=== PATIENT | male | born 1990 | race Caucasian/White ===

== ENCOUNTER 2018-01-18 23:23 | Emergency (ER) | payer OTHER ==
[~2018-01-18] VITALS: Ht 182.9 cm; Wt 83.9 kg
[~2018-01-18 23:23] MED LIST: AMOX875 PO; Amoxicillin500 MG PO; Bactrim Ds Tab1 EACH PO; CEPH500 PO; Cleocin HCl300 MG PO; IBUP600 PO; Norco 5-325 Ta1 EACH PO; Percocet 5-3251 EACH PO; Veetids 500500 MG PO
[2018-06-08] MEDS ORDERED: Zofran Odt4 MG PO (03:40)
[2018-09-26] MEDS ORDERED: SULI150 PO (03:31)
[2018-09-26] MEDS ORDERED: Robaxin-750750 MG PO (03:31)
== END 2018-01-19 00:21 | disposition home or self-care (01) ==
LOC: ER 23:23
DX: S60.552A Superficial foreign body of left hand, initial encounter (principal); F17.210 Nicotine dependence, cigarettes, uncomplicated; W22.8XXA Striking against or struck by other objects, initial encounter; Y99.0 Civilian activity done for income or pay
CPT/HCPCS: 90471; 90714; 99282

== ENCOUNTER 2019-04-11 19:28 | Emergency (ER) | payer OTHER ==
[~2019-04-11] VITALS: Ht 152.4 cm; Wt 94.3 kg
[~2019-04-11 19:28] MED LIST changes: +Robaxin-750750 MG PO; +SULI150 PO; +Zofran Odt4 MG PO
[2019-04-11 21:42] LABS: BASOPHILS ABSOLUTE AUTO 0.06 K/mm3 (0.00-0.23); BASOPHILS PERCENT AUTO 1 % (0-2); EOSINOPHILS ABSOLUTE AUTO 0.17 K/mm3 (0.00-0.68); EOSINOPHILS PERCENT AUTO 2 % (0-6); Hematocrit 48.6 % (37.0-53.0); Hemoglobin 16.3 g/dL (13.5-17.5); IMMATURE GRAN ABSOLUTE AUTO 0.02 K/mm3 (0.00-0.10); IMMATURE GRAN PERCENT AUTO 0 % (0-1); LYMPHOCYTES ABSOLUTE AUTO 4.29 K/mm3 (0.84-5.20); LYMPHOCYTES PERCENT AUTO 43 % (21-46); MONOCYTES ABSOLUTE AUTO 0.65 K/mm3 (0.16-1.47); MONOCYTES PERCENT AUTO 7 % (4-13); Mean Corpuscular HGB 31.2 pg (26.0-34.0); Mean Corpuscular HGB Conc 33.5 g/dL (31.5-36.5); Mean Corpuscular Volume 93 fL (80-100); Mean Platelet Volume 10.8 fL (9.1-12.4); NEUTROPHILS ABSOLUTE AUTO 4.82 K/mm3 (1.96-9.15); NEUTROPHILS PERCENT AUTO 48 % (41-73); Platelet Count 265 K/mm3 (150-400); RDW Coefficient Variation 12.3 % (11.7-14.2); RDW Standard Deviation 42.5 fL (35.1-46.3); Red Blood Cell Count 5.22 M/mm3 (4.30-5.90); White Blood Cell Count 10.01 K/mm3 (4.00-11.30)
[2019-04-11 21:59] LABS: Alanine Aminotransfer (ALT/SGP 64 U/L (12-78); Albumin/Globulin Ratio 1.2 (0.8-1.8); Alk Phos 73 U/L (50-136); Anion Gap 7 mmol/L (6-16); Aspartate Aminotrans (AST/SGOT 26 U/L (12-37); Bilirubin, Total 0.4 mg/dL (0.1-1.0); Blood Urea Nitrogen 11 mg/dL (8-24); Bun/Creatinine Ratio 14.1 (12.0-20.0); CO2, Blood 27 mmol/L (21-32); Chloride, Blood 106 mmol/L (98-108); Creatinine, Blood 0.78 mg/dL (0.60-1.20); Globulin, Blood 3.4 g/dL (2.2-4.0); Glomerular Filtration Rate >60 (60-); Glucose, Blood 82 mg/dL (70-99); Potassium, Blood 4.1 mmol/L (3.5-5.5); Sodium, Blood 140 mmol/L (136-145); Total Protein, Blood 7.4 g/dL (6.4-8.2)
== END 2019-04-11 22:48 | disposition home or self-care (01) ==
LOC: ER 19:28
PROVIDERS: Physician Assistant
DX: J02.9 Acute pharyngitis, unspecified (principal); R06.02 Shortness of breath; F17.210 Nicotine dependence, cigarettes, uncomplicated; Z79.899 Other long term (current) drug therapy
CPT/HCPCS: 71046; 80053; 85025; 87081; 87430; 96360; 99283-25; J1100; J7120